=== PATIENT | male | born 1945 | race Two or more races ===

== ENCOUNTER 2020-12-01 09:01 | Emergency (ER) | payer OTHER ==
[~2020-12-01] VITALS: Ht 172.7 cm; Wt 73.0 kg
== END 2020-12-01 13:02 | disposition home or self-care (01) ==
LOC: ER 09:01
DX: S83.8X1A Sprain of other specified parts of right knee, initial encounter (principal); X50.0XXA Overexertion from strenuous movement or load, initial encounter; Y93.B2 Activity, push-ups, pull-ups, sit-ups; Y92.89 Other specified places as the place of occurrence of the external cause; Y99.8 Other external cause status